=== PATIENT | female | born 1985 | race Caucasian/White ===

== ENCOUNTER 2019-07-17 15:45 | Emergency (ER) | payer OTHER ==
[~2019-07-17] VITALS: Ht 162.6 cm; Wt 70.0 kg
--- NOTE | 2019-07-17 16:08 | NUR ---
[employer] - PT TO ROOM FROM LOBBY AT THIS TIME.
--- NOTE | 2019-07-17 16:18 | NUR ---
PT HERE S/P EGD PROCEDURE. PT REPORTS THAT IT WAS FOUND SHE HAD SOME SWELLING. PT REPORTS THAT SHE IS HAVIGN DIFFICULTY SWALLOWING AND NOW HAVING CHEST PAIN. PT REPORTS THE DISCOMFORT HAS GOTTEN WORSE IN THE PAST FEW HOURS. PT REPORTS SOME N/V. PT CONNECTED TO MONITORS AND CALL LIGHT IN REACH. VSS. AIRWAY DOES NOT APPEARED OBSTRUCTED AT THIS TIME RN.
[2019-07-17 17:06] LABS: BASOPHILS # (AUTO) 0.03 x10^3/uL (0-0.1); BASOPHILS % (AUTO) 0 % (0-1); EOSINOPHILS # (AUTO) 0.21 x10^3/uL (0-0.4); EOSINOPHILS % (AUTO) 2 % (1-7); LYMPHOCYTES # (AUTO) 1.36 x10^3/uL (1-3.4); LYMPHOCYTES % (AUTO) 10 % (22-44); MD NO; MEAN CORPUSCULAR HEMOGLOBIN 32.9 pg (27.0-34.8); MEAN CORPUSCULAR HGB CONC 34.2 g/dL (32.4-35.8); MEAN CORPUSCULAR VOLUME 96.1 fL (80-100); MEAN PLATELET VOLUME 7.7 fL (7.4-10.4); MONOCYTES # (AUTO) 0.95 x10^3/uL (0.2-0.8); MONOCYTES % (AUTO) 7 % (2-9); NEUTROPHILS # (AUTO) 11.54 x10^3/uL (1.8-6.8); NEUTROPHILS % (AUTO) 82 % (42-75); PLATELET COUNT 348 x10^3/uL (130-400); RED BLOOD COUNT 4.94 x10^6/uL (3.82-5.3); RED CELL DISTRIBUTION WIDTH 12.1 % (9.6-15.2)
[2019-07-17 17:13] LABS: ANION GAP 3 mmol/L (5-15); CALCIUM 9.2 mg/dL (8.5-10.1); CHLORIDE 107 mmol/L (98-107); CREATININE 1.14 mg/dL (0.55-1.02)
[2019-07-17 17:17] LABS: TROPONIN I < 0.015 ng/mL (0.000-0.045)
[2019-07-17] MEDS ORDERED: morphine SULFATE/PF 0.5 MG/ML, 10ML IV PRN (18:00)
[2019-07-17] MEDS ORDERED: SODIUM CHLORIDE 0.9% 1,000ML IVBOLUS ONE ×2 (18:00)
[2019-07-17 18:09] VITALS: BP 127/70
[2019-07-17] MEDS ORDERED: MORPHINE SULFATE 4 MG/ML, 1ML ONE (18:30)
--- NOTE | 2019-07-17 19:55 | NUR ---
Patient/Caregiver given discharge instructions and they have confirmed that they understand the instructions. Patient ambulatory with steady gait.
== END 2019-07-17 19:57 | disposition home or self-care (01) ==
LOC: ED 19:51
DX: R07.2 Precordial pain (principal); K21.0 Gastro-esophageal reflux disease with esophagitis; Z72.89 Other problems related to lifestyle
CPT/HCPCS: 36415; 71045; 71250; 80048; 82040; 84484; 85025; 93005; 96374; 99284; J2274; J7030